=== PATIENT | female | born 1990 | race Caucasian/White ===

== ENCOUNTER 2018-08-27 19:35 | Emergency (ER) | payer SELFPAY ==
[2018-08-27] MEDS ORDERED: HYDROcodone/Acetaminophen 10/325 mg Tablet ONE (20:19)
== END 2018-08-27 20:27 | disposition home or self-care (01) ==
LOC: MADERS 19:35
DX: K02.9 Dental caries, unspecified (principal); F17.210 Nicotine dependence, cigarettes, uncomplicated
CPT/HCPCS: 99282

== ENCOUNTER 2019-03-12 16:53 | Emergency (ER) | payer MEDICAID, SELFPAY | END 2019-03-12 17:25 | disposition home or self-care (01) | LOC: MADERS 16:53 | DX: K04.7 Periapical abscess without sinus (principal); K02.9 Dental caries, unspecified; F17.210 Nicotine dependence, cigarettes, uncomplicated; Z71.6 Tobacco abuse counseling | CPT/HCPCS: 99406 ==